=== PATIENT | male | born 1960 | race Caucasian/White ===

== ENCOUNTER → 2020-08-23 | Outpatient (CLI) | payer OTHER ==
[~2020-08-23] MED LIST: ADVIL200 M1 PO; CETIRIZINE HCL10 MG PO; CYCLOBENZAPRINE10 MG PO; ELIQUIS2.5 MG PO; FENOFIBRATE160 MG PO; FLEXERIL 10 MG10 MG PO; HYDROCHLOROTHIA25 MG PO; LIPITOR TAB 1010 MG PO; LOPRESSOR50 MG PO; MELOXICAM7.5 MG PO; NORVASC 5 MG TAB5 MG PO; PERCOCET 10-321 EACH PO; PROTONIX 40 MG40 M1 PO; PROTONIX40 MG PO; VENTOLIN HFA 66.7 GM INH
== END ==
LOC: KOH-I 09:54
DX: F17.210 Nicotine dependence, cigarettes, uncomplicated (principal); R91.1 Solitary pulmonary nodule
CPT/HCPCS: 71271